=== PATIENT | male | born 1970 | race African-American/Black ===

== ENCOUNTER 2021-01-15 14:20 | Emergency (ER) | payer MEDICAID ==
[~2021-01-15] VITALS: Ht 182.9 cm; Wt 73.0 kg
[2021-01-15 16:30] LABS: BASOPHILS % 0.3 % (0.0-2.0); EOSINOPHILS % 0.1 % (0.0-5.0); HEMATOCRIT. 37.4 % (42.0-52.0); HEMOGLOBIN. 12.8 g/dL (14.0-18.0); LYMPHOCYTES % 7.2 % (20.0-50.0); MEAN CORPUSCULAR HEMOGLOBIN 34.8 pg (28.0-32.0); MEAN CORPUSCULAR VOLUME 101.7 fL (80.0-94.0); MONOCYTES % 8.8 % (2.0-8.0); NEUTROPHILS % 83.6 % (40.0-76.0); RED BLOOD CELL COUNT 3.67 mill/uL (4.7-6.1); RED CELL DISTRIBUTION WIDTH 13.4 % (11.6-14.6)
[2021-01-15 16:33] LABS: CHLORIDE 106 mEq/L (98-107)
[2021-01-15 17:06] LABS: PLATELET 102 x1000/uL (130-400)
[2021-01-15 17:07] LABS: MEAN PLATELET VOLUME 7.9 fl (7.4-10.4)
[2021-01-15 18:10] VITALS: BP 185/109
== END 2021-01-15 18:56 | disposition left against medical advice (07) ==
LOC: ER 14:20
DX: R55 Syncope and collapse (principal); I10 Essential (primary) hypertension
CPT/HCPCS: 36415; 71045; 80053; 83880; 84484; 85025; 99284

== ENCOUNTER 2022-07-14 18:31 | Emergency (ER) | payer MEDICAID, OTHER ==
[~2022-07-14] VITALS: Ht 182.9 cm; Wt 59.0 kg
[2022-07-14 22:30] VITALS: BP 121/86
== END 2022-07-14 23:39 | disposition left against medical advice (07) ==
LOC: ER 18:57
DX: R07.89 Other chest pain (principal); Z85.01 Personal history of malignant neoplasm of esophagus
CPT/HCPCS: 71046; 99283; Z7610